=== PATIENT | male | born 1940 | race African-American/Black ===

== ENCOUNTER 2019-05-01 18:58 | Observation (INO) | payer OTHER ==
[2019-05-01 19:15] VITALS: BMI 25.7
[2019-05-01] MEDS ORDERED: SODIUM CHLORIDE 500 ML IV STA (19:15)
--- NOTE | 2019-05-01 19:15 | PDOC ---
Rapid Medical Evaluation Medical Evaluation: I have performed a brief in-person evaluation of this patient. The patient presents with a chief complaint of: had vomiting and diarrhea 4 days ago, which has now stopped; sent by PCP as noted with low BP today Pertinent physical exam findings: In NAD I have ordered the following: Labs, IVF The patient will proceed to the ED for further evaluation. 05/01/19 19:13
--- NOTE | 2019-05-01 21:36 | PDOC ---
History of Present Illness - General Chief Complaint: Lightheaded Stated Complaint: SENT BY PCP/VOMITING Time Seen by Provider: 05/01/19 19:13 History Source: Patient Exam Limitations: No Limitations - History of Present Illness Initial Comments: 05/02/19 06:26 78M PMH IDDM, ?CHF vs peripheral edema (on lasix) sent in by PCP for low BP reading. Pt had nbnb vomiting x5 and 1 episode of nonbloody loose stool on 04/27 and 04/28; has had decreased appetite and decreased PO intake since. Denies f/c, cp/sob, n/v. Had an episode of self resolved lightheadedness (~25s) when getting out of the car today; states he has felt "off" today; denies LOC. No sick contacts. Past History - Past Medical History Allergies/Adverse Reactions: Allergies Allergy/AdvReac Type Severity Reaction Status Date / Time No Known Allergies Allergy Verified 05/01/19 19:15 Home Medications: Ambulatory Orders Carvedilol 12.5 mg PO BID 05/02/19 Gabapentin 300 mg PO BID 05/02/19 Insulin Detemir [Levemir Flextouch] 36 unit SQ HS 05/02/19 Losartan Potassium 100 mg PO DAILY 05/02/19 Prednisolone 1% Ophthalmic [Pred Forte 1% -] 1 drop OD QID 05/02/19 Simvastatin 20 mg PO HS 05/02/19 Sitagliptin Phosphate [Januvia -] 50 mg PO DAILY 05/02/19 Timolol 0.5% [Timoptic 0.5%] 1 drop OD DAILY 05/02/19 Torsemide [Demadex -] 10 mg PO DAILY 05/02/19 COPD: No Diabetes: Yes - Psycho Social/Smoking Cessation Hx Smoking History: Never smoked Review of Systems - Review of Systems Able to Perform ROS?: Yes Comments:: 05/02/19 06:26 CONSTITUTIONAL: Denies F / C RESP: Denies SOB CARD: Denies chest pain, palpitations GI: endorses loss of appetite and decreased PO intake. Denies N / V / D, abdominal pain/cramping, bloody stool, inability to tolerate PO : Denies dysuria SKIN: Denies rashes. endorses chronic LE pitting edema - decreased today vs normal. NEURO: Denies numbness, tingling, weakness *Physical Exam - Vital Signs Last Vital Signs Temp Pulse Resp BP Pulse Ox 97.3 F L 71 18 100/49 L 95 05/01/19 19:11 05/01/19 19:11 05/01/19 19:11 05/01/19 19:11 05/01/19 19:11 - Physical Exam 05/02/19 06:26 VS: BP 110/49 GEN: Well appearing, NAD, comfortable. AAOx3. HEENT: NC/AT. No facial asymmetry. Dry mucous membranes. Normal voice. Supple neck w/ FROM. CV: S1/S2, RRR, no m/r/g LUNG: CTAB, no wheezes, crackles, rales, rhonchi. GI: Soft, ndnt, +BS, no guarding, no rebound. No masses. MSK: 1+ pitting LE edema. No obvious deformities of all extremities. SKIN: Warm, dry, no rashes appreciated. PSYCH: Normal mood and affect. NEURO: Moving all extremities well. ED Treatment Course - LABORATORY CBC & Chemistry Diagram: 05/01/19 21:40 05/01/19 21:40 - RADIOLOGY Radiology Studies Ordered: Category Date Time Status CXRPORT [CHEST X-RAY PORTABLE*] [RAD] Stat Radiology 05/01/19 21:31 Ordered Medical Decision Making - Medical Decision Making 05/01/19 21:32 78M PMH IDDM, ?CHF vs peripheral edema (on lasix) sent in by PCP for low BP reading. Pt feels off and had an episode of lightheadedness. DDX - likely dehydration; eval lytes, cardiac causes, presyncope? - CBC, CMP, Cardiac - EKG, CXR - Soft fluids 05/01/19 22:18 CXR reviewed EKG 2206 HR 64 NV 180 QRS 88 QTc 418; NSR on strip, left axis. 05/01/19 23:42 labs reviewed elevated BUN/Cr - pt states he has CKD III does not know baseline Cr Call placed to PCP 500 NS 05/02/19 00:09 d/w Dr. Dykes: Cr 2.February, baseline Cr 1.5-2.0, CKD III; BP 86/36 in office today. Admit for further workup //admitted Discharge - Discharge Information Problems reviewed: Yes Clinical Impression/Diagnosis: Syncope, near Acute renal failure superimposed on chronic kidney disease Qualifiers: Acute renal failure type: unspecified Chronic kidney disease stage: unspecified stage Qualified Code(s): N17.9 - Acute kidney failure, unspecified Condition: Stable - Admission Yes - Follow up/Referral - Patient Discharge Instructions - Post Discharge Activity
[2019-05-01 22:22] LABS: BASO % 0.9 % (0-2.0); EOS % 1.6 % (0-4.5); HEMATOCRIT 45.7 % (35.4-49); HEMOGLOBIN 15.5 GM/dL (11.7-16.9); LYMPH % 33.1 % (8-40); MCH 29.8 pg (25.7-33.7); MCHC 33.9 g/dl (32.0-35.9); MEAN CELL VOLUME 87.9 fl (80-96); MEAN PLT VOLUME 9.7 fl (7.5-11.1); MONO % 13.6 % (3.8-10.2); NEUT % 50.8 % (42.8-82.8); PLATELET COUNT 127 K/MM3 (134-434); RDW 13.7 % (11.9-15.9); WHITE BLOOD COUNT 6.5 K/mm3 (4.0-10.0)
[2019-05-01 22:52] LABS: ALBUMIN 3.6 g/dl (3.4-5.0); ALK PHOS 60 U/L (45-117); ANION GAP 8 MMOL/L (8-16); BILIRUBIN,TOTAL 0.6 mg/dL (0.2-1); BLOOD UREA NITROGEN 54.3 mg/dL (7-18); CALCIUM 8.7 mg/dL (8.5-10.1); CHLORIDE 101 mmol/L (98-107); CO2 26 mmol/L (21-32); CREATININE 3.4 mg/dL (0.55-1.3); GLUCOSE,RANDOM 140 mg/dL (74-106); MAGNESIUM 2.6 mg/dL (1.8-2.4); POTASSIUM 4.1 mmol/L (3.5-5.1); SGOT/AST 19 U/L (15-37); SGPT/ALT 19 U/L (13-61); SODIUM 135 mmol/L (136-145); TOT PROT 7.4 g/dl (6.4-8.2)
[2019-05-01] MEDS ORDERED: SODIUM CHLORIDE 0.9% 500 ML INFUS.BAG IV ONE (23:22)
--- NOTE | 2019-05-01 23:57 | PDOC ---
Attending Attestation - Resident Resident Name: Abimael Galindo - ED Attending Attestation I have performed the following: I have examined & evaluated the patient, The case was reviewed & discussed with the resident, I agree w/resident's findings & plan, Exceptions are as noted - HPI HPI: 05/01/19 23:51 78 yo male h/o here with episode of feeling lightheaded. pt states 4 days ago did have n/v/d which lasted 24 hours. no fever. no abd pain. no sick contact. all nonbloody . since then it has resolved, he is tolerating PO. but today he was about to walk across street and felt " wobbly" unsteady like he was going to faint. was nervous so waited at side of street. saw his pcp today found to have low bp 100 Sbp no fever chills. no cp no palpitations. no swellig.n no abd pain. no other complaints. denies vertigo or vertigo like sxs . - Physicial Exam PE: 05/01/19 23:53 awake alert lungs clear bilat heart rrr, mrg abd soft nt nd. ext wwp no edema. no calf tenderness. nuero normal cerbellar ( finger to nose, heel to ray normal gait normal. neg romberg, neg harvinder hallpike) strength 5/5 CN II - XII intact. - Medical Decision Making 05/01/19 23:54 78 yo male DM , and CKD here with recent n/v/d illness that has since resolved. now feeling lightheaded, near syncopal. no loc. normal cerebellar exam. plan r/o worsening ckd. electrolyte abnoramlity, cardiac causes or infetion given 1 L NS hydration. pt labs reveal ckd 3.0, otherwise unremarkable. TWI III, flat AVF. left axis. will try to contact pcp for baseline creatinine. Heart Score/ECG Review #1 General ECG Interpretation: Sinus Rhythm, Normal Rate, Normal Intervals, No acute ischemic changes Compared to previous ECG there are: Other (rate 64 TWI III, flat AVF. left axis)
[2019-05-02 00:22] LABS: URINE APPEARANCE CLEAR; URINE BILIRUBIN NEGATIVE (NEGATIVE); URINE COLOR YELLOW; URINE GLUCOSE (UA) NEGATIVE (NEGATIVE); URINE KETONE NEGATIVE (NEGATIVE); URINE LEUK ESTERASE NEGATIVE (NEGATIVE); URINE NITRITE NEGATIVE (NEGATIVE); URINE PROTEIN NEGATIVE (NEGATIVE)
--- NOTE | 2019-05-02 01:57 | PN ---
Teaching Attending Note Name of Resident: Sergey Pichardo ATTENDING PHYSICIAN STATEMENT I saw and evaluated the patient. I reviewed the resident's note and discussed the case with the resident. I agree with the resident's findings and plan as documented. SUBJECTIVE: 78-year-old male with a history of hypertension, diabetes mellitus, CKD, seen at PMDs office on 05/01/2019, was feeling dizzy at that time and wobbly. Found to be hypotensive in the PCPs office, was referred to emergency room for hypotension. Of note patient was having diarrhea. vomiting for past several days with about 2 loose bowel movements a day. Of note he was taking torsemide as well. Denied any headaches, nausea or vomiting.In the ER he received 1 L of IV fluid. Chest x-ray was performed. OBJECTIVE: Last Vital Signs Temp Pulse Resp BP Pulse Ox 97.3 F L 65 16 119/76 99 05/01/19 19:11 05/01/19 21:34 05/01/19 21:34 05/01/19 21:34 05/01/19 21:34 On physical exam patient was not in any acute distress, head was normocephalic, atraumatic. No JVD appreciated. Dry oral mucosa. Lungs are clear to auscultation bilaterally, cardiac exam was S1, S2. Abdomen soft, nontender. No CVA tenderness appreciated. No pedal edema appreciated. Dry skin. Abnormal Lab Results 05/01/19 05/01/19 21:40 21:40 Plt Count 127 L Monocytes % 13.6 H Sodium 135 L BUN 54.3 H Creatinine 3.4 H Random Glucose 140 H Magnesium 2.6 H Chest x-ray reviewed EKG reviewednormal sinus rhythm, LVH, left axis deviation ASSESSMENT AND PLAN: 78-year-old male with presyncope likely secondary to dehydration, MAYELA on CKD suspect likely prerenal azotemia as patient was thought to be dehydrated secondary to diarrhea, vomiting, and possibly overdiuresis. Dizziness improved after IV fluid hydration. Suspect vomiting and diarrhea likely secondary to gastroenteritis. 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
[2019-05-02] MEDS ORDERED: INSULIN (LEVEMIR) 100 UNITS/ML UNITS SQ ONE ×2 (02:36→04:16)
[2019-05-02] MEDS ORDERED: SODIUM CHLORIDE 1,000 ML IV SCH ×2 (02:45→10:26)
--- NOTE | 2019-05-02 02:57 | HP ---
CHIEF COMPLAINT: Hypotension PCP: Dr. Dykes HISTORY OF PRESENT ILLNESS: 78M PMH of HTN, IDDM, HLD, CKD III, who presents today from his PCP after an episode of hypotension. Patient endorses feeling weak and "off" the past few days after having multiple episodes of NBNB emesis on night and Wednesday , as well diarrhea on Wednesday. He has had decreased PO intake over the weekend and went to see his PCP in the morning, where they had a low BP reading. On his way to the PCP office he also had an episode of dizziness after he stepped out of the car but it resolved within a matter of seconds. He denies any other episodes similar to that during the past few days. He denies any chest pain, shortness of breath, current abdominal pain, nausea, vomiting, diarrhea, fever, chills, and cough. 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 Enjoys fishing, and lives with his ladyfriend at home. Allergies No Known Allergies Allergy (Verified 05/01/19 19:15) HOME MEDICATIONS: REVIEW OF SYSTEMS CONSTITUTIONAL: Absent: fever, chills, diaphoresis, generalized weakness, malaise, loss of appetite, weight change HEENT: Absent: rhinorrhea, nasal congestion, throat pain, throat swelling, difficulty swallowing, mouth swelling, ear pain, eye pain, visual changes CARDIOVASCULAR: Absent: chest pain, syncope, palpitations, irregular heart rate, lightheadedness , peripheral edema RESPIRATORY: Absent: cough, shortness of breath, dyspnea with exertion, orthopnea, wheezing, stridor, hemoptysis GASTROINTESTINAL: Absent: abdominal pain, abdominal distension, nausea, vomiting, diarrhea, constipation, melena, hematochezia GENITOURINARY: Absent: dysuria, frequency, urgency, hesitancy, hematuria, flank pain, genital pain MUSCULOSKELETAL: Absent: myalgia, arthralgia, joint swelling, back pain, neck pain SKIN: Absent: rash, itching, pallor HEMATOLOGIC/IMMUNOLOGIC: Absent: easy bleeding, easy bruising, lymphadenopathy, frequent infections ENDOCRINE: Absent: unexplained weight gain, unexplained weight loss, heat intolerance, cold intolerance NEUROLOGIC: Absent: headache, focal weakness or paresthesias, dizziness, unsteady gait, seizure, mental status changes, bladder or bowel incontinence PSYCHIATRIC: Absent: anxiety, depression, suicidal or homicidal ideation, hallucinations. PHYSICAL EXAMINATION Vital Signs - 24 hr 05/01/19 05/01/19 19:11 21:34 Temperature 97.3 F L Pulse Rate 71 Pulse Rate [ 65 Right Brachial] Respiratory 18 16 Rate Blood Pressure 100/49 L Blood Pressure 119/76 [Right Arm] O2 Sat by Pulse 95 99 Oximetry (%) GENERAL: Awake, alert, and fully oriented, in no acute distress. HEAD: Normal with no signs of trauma. EARS, NOSE, THROAT: Moist mucous membranes. NECK: Normal range of motion, supple without lymphadenopathy, JVD, or masses. LUNGS: Breath sounds equal, clear to auscultation bilaterally. No wheezes, and no crackles. HEART: Regular rate and rhythm, normal S1 and S2 without murmur, rub or gallop. ABDOMEN: Soft, nontender, not distended, normoactive bowel sounds, no guarding or rebound. MUSCULOSKELETAL: Normal range of motion at all joints. No bony deformities or tenderness. No CVA tenderness. UPPER EXTREMITIES: 2+ pulses, warm, well-perfused. LOWER EXTREMITIES: 2+ pulses, warm, well-perfused. No calf tenderness. NEUROLOGICAL: Cranial nerves II-XII intact. Normal speech. Normal gait. PSYCHIATRIC: Cooperative. Good eye contact. Appropriate mood and affect. SKIN: Warm, dry, normal turgor, no rashes or lesions noted, normal capillary refill Laboratory Results - last 24 hr 05/01/19 05/01/19 05/01/19 21:40 21:40 23:58 WBC 6.5 RBC 5.20 Hgb 15.5 Hct 45.7 MCV 87.9 MCH 29.8 MCHC 33.9 RDW 13.7 Plt Count 127 L MPV 9.7 Absolute Neuts (auto) 3.3 Neutrophils % 50.8 Lymphocytes % 33.1 Monocytes % 13.6 H Eosinophils % 1.6 Basophils % 0.9 Nucleated RBC % 0 Sodium 135 L Potassium 4.1 Chloride 101 Carbon Dioxide 26 Anion Gap 8 BUN 54.3 H Creatinine 3.4 H Est GFR (CKD-EPI)AfAm 18.68 Est GFR (CKD-EPI)NonAf 16.12 Random Glucose 140 H Calcium 8.7 Magnesium 2.6 H Total Bilirubin 0.6 AST 19 ALT 19 Alkaline Phosphatase 60 Creatine Kinase 132 Troponin I < 0.02 Total Protein 7.4 Albumin 3.6 Urine Color Yellow Urine Appearance Clear Urine pH 5.0 Ur Specific [place] 1.015 Urine Protein Negative Urine Glucose (UA) Negative Urine Ketones Negative Urine Blood Negative Urine Nitrite Negative Urine Bilirubin Negative Urine Urobilinogen 1.0 Ur Leukocyte Esterase Negative ASSESSMENT/PLAN: 78M PMH of HTN, IDDM, HLD, CKD III, who presents today from his PCP after an episode of hypotension and likely prerenal acute kidney injury in the setting of chronic kidney disease due to dehydration. 1) Hypotension -Had episode of presyncope but symptoms have resolved -Currently normotensive,has hx of hypertension -Orthostatics: 149/71 HR 65 while supine. 160/61 HR 74 while standing -1L of NS given -Continue NS @ 50 ml/hr -Encourage PO intake. -Echocardiogram to evaluate cardiac function in light of episode of lightheadedness/dizziness -Continue Losartan 100 mg -Continue Carvedilol 12.5 mg BID 2)MAYELA in setting of CKD III -Baseline creatinine is ~2.0 -Today creatinine is 3.4. Likely prerenal due to dehydration -1L NS given -Holding Torsemide -NS @ 50 ml/hr -Urine lytes ordered -Renal U/S ordered 3) Hx of DM -Usually takes Levemir 36 units HS. However due to poor oral intake, will decrease tonights dose - Holding home oral hypoglycemics - Continue eye drops for cataracts. - ISS and BGM ACHS -Continue gabapentin 300 mg BID 4)Hx of HLD -Continue simvastatin 20 mgHS DVT: Heparin SQ F: NS @ 50 ml/hr E: Monitor BMP N: Sodium/fat/diabetic controlled diet Dispo: Telemetry/obs Visit type - Emergency Visit Emergency Visit: Yes ED Registration Date: 05/02/19 Care time: The patient presented to the Emergency Department on the above date and was hospitalized for further evaluation of their emergent condition. - New Patient This patient is new to me today: Yes Date on this admission: 05/02/19 - Critical Care Critical Care patient: No ATTENDING PHYSICIAN STATEMENT I saw and evaluated the patient. I reviewed the resident's note and discussed the case with the resident. I agree with the resident's findings and plan as documented. SUBJECTIVE: OBJECTIVE: ASSESSMENT AND PLAN:
[2019-05-02] MEDS ORDERED: HEPARIN NA (PORCINE) 5,000 UNITS/ML 1ML VIAL SQ SCH (06:00)
[2019-05-02 06:44] LABS: BASO % 0.8 % (0-2.0); EOS % 2.2 % (0-4.5); HEMATOCRIT 37.5 % (35.4-49); HEMOGLOBIN 12.5 GM/dL (11.7-16.9); LYMPH % 35.3 % (8-40); MCH 29.3 pg (25.7-33.7); MCHC 33.4 g/dl (32.0-35.9); MEAN CELL VOLUME 87.7 fl (80-96); MEAN PLT VOLUME 8.9 fl (7.5-11.1); MONO % 14.2 % (3.8-10.2); NEUT % 47.5 % (42.8-82.8); PLATELET COUNT 102 K/MM3 (134-434); RBC 4.28 M/mm3 (4.00-5.60); RDW 13.4 % (11.9-15.9); WHITE BLOOD COUNT 5.6 K/mm3 (4.0-10.0)
[2019-05-02] MEDS ORDERED: INSULIN (NOVOLOG) ASPART 100 UNITS/ML 10ML VIAL ONE (07:02)
[2019-05-02 07:07] LABS: CREATININE 3.2 mg/dL (0.55-1.3); POTASSIUM 3.8 mmol/L (3.5-5.1)
[2019-05-02] MEDS: INSULIN (NOVOLOG) ASPART 100 UNITS/ML 10ML VIAL SQ SCH ×4 (07:13→21:33)
--- NOTE | 2019-05-02 08:52 | CONSULT ---
Consult Consult Specialty:: Nephrology Reason for Consultation:: CKD - History of Present Illness Chief Complaint: low blood pressure History of Present Illness: Pt is an 78 year old male with pmhx of ckd, htn. dm, hld who presents to the ER after having an episode of hypotension. He says that he has felt sick and has had several episodes of vomiting and diarrhea. 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 He does have history of CKD and follows with a windows server support technician. 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 He does take furosemide at home. - History Source History Provided By: Patient - Past Medical History Cardio/Vascular: Yes: HTN, Hyperlipdemia Renal/: Yes: Renal Inusuff - Smoking History Smoking history: Never smoked Home Medications - Allergies Allergies/Adverse Reactions: Allergies Allergy/AdvReac Type Severity Reaction Status Date / Time No Known Allergies Allergy Verified 05/01/19 19:15 - Home Medications Home Medications: Ambulatory Orders Carvedilol 12.5 mg PO BID 05/02/19 Gabapentin 300 mg PO BID 05/02/19 Insulin Detemir [Levemir Flextouch] 36 unit SQ HS 05/02/19 Losartan Potassium 100 mg PO DAILY 05/02/19 Prednisolone 1% Ophthalmic [Pred Forte 1% -] 1 drop OD QID 05/02/19 Simvastatin 20 mg PO HS 05/02/19 Sitagliptin Phosphate [Januvia -] 50 mg PO DAILY 05/02/19 Timolol 0.5% [Timoptic 0.5%] 1 drop OD DAILY 05/02/19 Torsemide [Demadex -] 10 mg PO DAILY 05/02/19 Family Medical History Family History: Denies Review of Systems - Review of Systems Constitutional: reports: Malaise Eyes: reports: No Symptoms HENT: reports: No Symptoms Neck: reports: No Symptoms Cardiovascular: reports: Edema Respiratory: reports: No Symptoms Gastrointestinal: reports: No Symptoms Genitourinary: reports: No Symptoms Musculoskeletal: reports: No Symptoms Integumentary: reports: No Symptoms Endocrine: reports: No Symptoms Hematology/Lymphatic: reports: No Symptoms Psychiatric: reports: No Symptoms Physical Exam Vital Signs: Vital Signs Temperature 97.3 F L 05/01/19 19:11 Pulse Rate 65 05/02/19 07:46 Respiratory Rate 20 02/25/20 07:46 Blood Pressure 126/65 02/25/20 07:46 O2 Sat by Pulse Oximetry (%) 100 05/02/19 07:46 Constitutional: Yes: Calm Eyes: Yes: Conjunctiva Clear HENT: Yes: Atraumatic Cardiovascular: Yes: S1, S2 Respiratory: Yes: CTA Bilaterally Gastrointestinal: Yes: WNL Renal/: Yes: WNL Musculoskeletal: Yes: WNL Edema: Yes Edema: LLE: 1+, RLE: 1+ Neurological: Yes: Oriented Psychiatric: Yes: Oriented Labs: CBC, BMP 05/02/19 06:10 05/02/19 06:10 Imaging - Results Chest X-ray: Report Reviewed Ultrasound: Report Reviewed Problem List - Problems (1) Acute renal failure superimposed on chronic kidney disease Code(s): N17.9 - ACUTE KIDNEY FAILURE, UNSPECIFIED; N18.9 - CHRONIC KIDNEY DISEASE, UNSPECIFIED Qualifiers: Acute renal failure type: unspecified Chronic kidney disease stage: unspecified stage Qualified Code(s): N17.9 - Acute kidney failure, unspecified ; N18.9 - Chronic kidney disease, unspecified (2) Syncope, near Code(s): R55 - SYNCOPE AND COLLAPSE Assessment/Plan Current Medications Generic Name Dose Route Start Last Admin Trade Name Freq PRN Reason Stop Dose Admin Atorvastatin Calcium 10 mg 05/02/19 22:00 Lipitor - PO HS PAM Carvedilol 12.5 mg 05/02/19 10:00 Coreg - PO BID PAM Sodium Chloride 1,000 mls @ 50 mls/hr 05/02/19 02:45 05/02/19 04:35 Normal Saline - IV 05/03/19 02:38 50 mls/hr ASDIR PAM Administration Insulin Aspart 1 units 05/02/19 07:00 05/02/19 07:13 Novolog Vial SQ 4 units ACHS PAM Administration Protocol Insulin Detemir 30 units 05/02/19 22:00 Levemir Vial SQ HS PAM Losartan Potassium 100 mg 05/02/19 10:00 Cozaar - PO DAILY PAM Prednisolone Acetate 1 drop 05/02/19 10:00 Pred Forte 1% - OD QID PAM Timolol Maleate 1 drop 05/02/19 10:00 Timoptic 0.5% OD BID PAM Impression 1. ckd 2. humphrey 3. near syncope 4. dm 5. htn Plan - hold bp meds - hold losartan for now - renal function improving - repeat labs in am - will need follow up ultrasound as outpt for the left kidney deformity
--- NOTE | 2019-05-02 09:40 | EKG ---
Test Reason : Blood Pressure : / mmHG Vent. Rate : 064 BPM Atrial Rate : 064 BPM P-R Int : 180 ms QRS Dur : 088 ms QT Int : 406 ms P-R-T Axes : 017 -37 -08 degrees QTc Int : 418 ms NORMAL SINUS RHYTHM LEFT AXIS DEVIATION MINIMAL VOLTAGE CRITERIA FOR LVH, MAY BE NORMAL VARIANT ABNORMAL ECG NO PREVIOUS ECGS AVAILABLE Confirmed by Neel Trevino MD ([id number]) on 05/02/2019 9:40:07 AM Referred By: Confirmed By:Neel Trevino MD
[2019-05-02] MEDS ORDERED: LOSARTAN POTASSIUM 50 MG TABLET (FP) PO SCH (10:00)
[2019-05-02] MEDS ORDERED: GABAPENTIN 300 MG CAPSULE PO SCH (10:00)
[2019-05-02] MEDS ORDERED: PATIENT'S OWN MEDICATION (NON-FORMULARY) (Losartan Potassium [Losartan Potassium] 100 MG) PO SCH (10:00)
[2019-05-02] MEDS ORDERED: CARVEDILOL 12.5 MG TABLET (FP) PO SCH ×2 (10:00→14:44)
--- NOTE | 2019-05-02 10:54 | ECHO ---
Name: TAYA ROSA Exam:Adult Echocardiogram Study Date: 05/02/2019 10:04 AM Age: 78 yrs Reason For Study: Presyncopal Height: 72 in Weight: 190 lb BSA: 2.1 m2 MMode/2D Measurements & Calculations IVSd: 1.4 cm Ao root diam: 3.9 cm LVIDd: 3.0 cm LA dimension: 3.7 cm LVIDs: 2.1 cm ACS: 2.2 cm LVPWd: 1.0 cm EDV(Teich): 36.2 ml LVOT diam: 2.0 cm ESV(Teich): 13.8 ml RV S Silvino: 8.0 cm/sec Doppler Measurements & Calculations MV E max silvino: 94.3 cm/sec Ao V2 max: 125.7 cm/sec MV A max silvino: 80.5 cm/sec Ao max P.3 mmHg MV E/A: 1.2 Ao V2 mean: 82.8 cm/sec MV dec time: 0.18 sec Ao mean P.2 mmHg Ao V2 VTI: 26.5 cm ISAAC(I,D): 2.8 cm2 AI P1/2t: 1180 msec ISAAC(V,D): 2.7 cm2 AI max silvino: 282.3 cm/sec LV V1 max P.4 mmHg AI max P.9 mmHg LV V1 mean P.1 mmHg AI dec slope: 70.1 cm/sec2 LV V1 max: 104.6 cm/sec LV V1 mean: 67.7 cm/sec LV V1 VTI: 23.1 cm MR max silvino: 176.5 cm/sec SV(LVOT): 75.3 ml MR max P.6 mmHg TR max silvino: 169.9 cm/sec PA V2 max: 73.1 cm/sec TR max P.8 mmHg PA max P.1 mmHg PI end-d silvino: 96.0 cm/sec Med Peak E' Silvino: 6.9 cm/sec Med E/e': 13.6 Lat Peak E' Silvino: 9.2 cm/sec Lat E/e': 10.3 Procedure A complete two-dimensional transthoracic echocardiogram was performed (2D, M-mode, Doppler and color flow Doppler). Left Ventricle The left ventricular size, thickness and function are normal. Ejection Fraction = 65%. E/A reversal c onsistent with but not diagnostic of poor LV compliance. The left ventricular wall motion is normal. Right Ventricle The right ventricle is normal in size and function. Atria Normal left and right atrial size and function. Mitral Valve There is mild mitral annular calcification. There is mild mitral valve thickening. There is trace chris ral regurgitation. Tricuspid Valve The tricuspid valve is normal in structure and function. There is trace tricuspid regurgitation. Righ t ventricular systolic pressure is 18 mmhg. Aortic Valve There is mild aortic valve thickening. Trace to mild aortic regurgitation. Pulmonic Valve The pulmonic valve is normal in structure and function. Great Vessels Borderline aortic root dilatation. Pericardium/Pleura There is no pericardial effusion. There is no pleural effusion. Interpretation Summary The left ventricular size, thickness and function are normal Ejection Fraction = 65%. There is mild mitral annular calcification. There is mild mitral valve thickening. There is trace mitral regurgitation. There is trace tricuspid regurgitation. There is mild aortic valve thickening. Trace to mild aortic regurgitation. MD Neel Trevino 05/02/2019 10:53 AM
--- NOTE | 2019-05-02 14:35 | PN ---
Teaching Attending Note Name of Resident: Abimael Schroeder ATTENDING PHYSICIAN STATEMENT I saw and evaluated the patient. I reviewed the resident's note and discussed the case with the resident. I agree with the resident's findings and plan as documented. SUBJECTIVE: No fever or chills. No CP or SOB. No NV. No abd pain, no diarrhea. He reports that his Cr is in the 2 range. he had N/V/D on and Wednesday then it stopped. was light headed yesterday but not today . OBJECTIVE: limited exam. patient is in hallway NAD , awake, pleasant, and cooperative CV: RRR, no MRG Lungs: CTAB Ext : No edema or erythema ASSESSMENT AND PLAN: 78 y/o man with h/o CKDIII, HTN, DM, who presented with hypotension from his PCP 's office. He was found to have MAYELA on CKD 1- MAYELA on CKD: base line Cr in 2 range . will confirm with PCP MAYELA is likely due to prerenal azotemia from volume depletion in setting of N/V/ D and diuretic use Cr improved with IV hydration - COnt and increase IVF to 100 - follow urine electrolytes - renal consult pending Recs - Renal US with abnormal contour of the kidney but no abn. renal US in few month - DC mili for now. unfortunately, he received the AM dose 2- Hypotension: likely due to volume depletion - resolved. - hold diuretics - hold losartan due to MAYELA and hypotension - cont coreg with holding parameters 3- DM: - cont Levemir and SSI - hold sitagliptin with decreased GFR 4- Dis[o : HLOC
[2019-05-02] MEDS: TIMOLOL 0.5% OPHTHALMIC SOL 5 ML BOTTLE OD SCH ×2 (14:49→21:34)
[2019-05-02] MEDS: prednisoLONE ACETATE 1% OPHTH SUSP 5 ML BOTTLE OD SCH ×4 (14:49→21:34)
--- NOTE | 2019-05-02 18:36 | PN ---
Physical Exam: SUBJECTIVE: Patient seen and examined at bedside. pt has no acute complaints. denies SOB or CP OBJECTIVE: Vital Signs Period Temp Pulse Resp BP Sys/Junior Pulse Ox Last 24 Hr 97.3 F-98.5 F 57-71 16-20 100-138/49-76 95-100 GENERAL: The patient is awake, alert, and fully oriented, in no acute distress. ENT: moist mucous membranes. NECK: Trachea midline, full range of motion, supple. LUNGS: Breath sounds equal, clear to auscultation bilaterally, no wheezes, no crackles, no accessory muscle use. HEART: Regular rate and rhythm, +S1, S2 ABDOMEN: Soft, nontender, nondistended, normoactive bowel sounds, no guarding EXTREMITIES: 2+ pulses, warm, well-perfused, no edema. SKIN: Warm, dry, normal turgor, no rashes or lesions noted Laboratory Last Values WBC 5.6 K/mm3 (4.0-10.0) 05/02/19 06:10 RBC 4.28 M/mm3 (4.00-5.60) 05/02/19 06:10 Hgb 12.5 GM/dL (11.7-16.9) 05/02/19 06:10 Hct 37.5 % (35.4-49) D 05/02/19 06:10 MCV 87.7 fl (80-96) 05/02/19 06:10 MCH 29.3 pg (25.7-33.7) 05/02/19 06:10 MCHC 33.4 g/dl (32.0-35.9) 05/02/19 06:10 RDW 13.4 % (11.9-15.9) 05/02/19 06:10 Plt Count 102 K/MM3 (134-434) L 05/02/19 06:10 MPV 8.9 fl (7.5-11.1) 05/02/19 06:10 Absolute Neuts (auto) 2.7 K/mm3 (1.5-8.0) 05/02/19 06:10 Neutrophils % 47.5 % (42.8-82.8) 05/02/19 06:10 Lymphocytes % 35.3 % (8-40) 05/02/19 06:10 Monocytes % 14.2 % (3.8-10.2) H 02/25/20 06:10 Eosinophils % 2.2 % (0-4.5) 05/02/19 06:10 Basophils % 0.8 % (0-2.0) 05/02/19 06:10 Nucleated RBC % 0 % (0-0) 05/02/19 06:10 Sodium 137 mmol/L (136-145) 05/02/19 06:10 Potassium 3.8 mmol/L (3.5-5.1) 05/02/19 06:10 Chloride 105 mmol/L (98-107) 05/02/19 06:10 Carbon Dioxide 26 mmol/L (21-32) 05/02/19 06:10 Anion Gap 6 MMOL/L (8-16) L 05/02/19 06:10 BUN 55.0 mg/dL (7-18) H 05/02/19 06:10 Creatinine 3.2 mg/dL (0.55-1.3) H 05/02/19 06:10 Est GFR (CKD-EPI)AfAm 20.10 05/02/19 06:10 Est GFR (CKD-EPI)NonAf 17.34 05/02/19 06:10 POC Glucometer 101 UNITS (80-120) 05/02/19 13:09 Random Glucose 258 mg/dL (74-106) H 05/02/19 06:10 Calcium 8.0 mg/dL (8.5-10.1) L 05/02/19 06:10 Magnesium 2.6 mg/dL (1.8-2.4) H 05/01/19 21:40 Total Bilirubin 0.6 mg/dL (0.2-1) 05/01/19 21:40 AST 19 U/L (15-37) 05/01/19 21:40 ALT 19 U/L (13-61) 05/01/19 21:40 Alkaline Phosphatase 60 U/L (45-117) 05/01/19 21:40 Creatine Kinase 132 U/L (26-308) 05/01/19 21:40 Troponin I < 0.02 ng/ml (0.00-0.05) 05/01/19 21:40 Total Protein 7.4 g/dl (6.4-8.2) 05/01/19 21:40 Albumin 3.6 g/dl (3.4-5.0) 05/01/19 21:40 Urine Color Yellow 05/01/19 23:58 Urine Appearance Clear 05/01/19 23:58 Urine pH 5.0 (5.0-8.0) 05/01/19 23:58 Ur Specific [place] 1.015 (1.010-1.035) 05/01/19 23:58 Urine Protein Negative (NEGATIVE) 05/01/19 23:58 Urine Glucose (UA) Negative (NEGATIVE) 05/01/19 23:58 Urine Ketones Negative (NEGATIVE) 05/01/19 23:58 Urine Blood Negative (NEGATIVE) 05/01/19 23:58 Urine Nitrite Negative (NEGATIVE) 05/01/19 23:58 Urine Bilirubin Negative (NEGATIVE) 05/01/19 23:58 Urine Urobilinogen 1.0 mg/dL (0.2-1.0) 05/01/19 23:58 Ur Leukocyte Esterase Negative (NEGATIVE) 05/01/19 23:58 Current Medications Atorvastatin Calcium (Lipitor -) 10 mg PO HS [facility] Carvedilol (Coreg -) 12.5 mg PO BID [facility] Sodium Chloride (Normal Saline -) 1,000 mls @ 100 mls/hr IV ASDIR [facility] Stop: 05/03/19 02:38 Last Admin: 05/02/19 14:58 Dose: 100 mls/hr Insulin Aspart (Novolog Vial) 1 units SQ ACHS [facility]; Protocol Last Admin: 05/02/19 16:53 Dose: Not Given Insulin Detemir (Levemir Vial) 30 units SQ HS [facility] Prednisolone Acetate (Pred Forte 1% -) 1 drop OD QID [facility] Last Admin: 05/02/19 15:41 Dose: Not Given Timolol Maleate (Timoptic 0.5%) 1 drop OD BID [facility] Last Admin: 05/02/19 14:49 Dose: Not Given ASSESSMENT/PLAN: 78 yo M PMH HTN, DM, HLD, CKD, presented from his PCP for a low BP reading. Pt is admitted for MAYELA on CKD. Hypotension - orthostatic negative. - c/w IVF @ 100 mls/hr - Encourage PO intake - Echo shows EF 65%, mild mitral annular calcification, mild mitral valve thickening, trace MR, trace TR , mild aortic valve thickening, mild AR - hold losartan - c/w coreg MAYELA on CKD likely 2/2 dehydration - baseline Cr approx 2 , confirmed with PCP Dr. Linares - improving - continue w/ IVF - hold SOWMYA-I / ARB, avoid nephrotoxic agent -Renal U/S shows focal contour of L kidney. will need outpt f/u in 3 months - pending U lytes - Nephro recs appreciated DM - c/w Levemir 30 hs - ISS, BGM - c/w gabapentin and eye drops HLD - c/w simvastatin DVT ppx: Hep SQ Dispo: Telemetry Visit type - Emergency Visit Emergency Visit: No - New Patient This patient is new to me today: Yes - Critical Care Critical Care patient: No - Discharge Referral Referred to [facility] Med P.C.: No ATTENDING PHYSICIAN STATEMENT I saw and evaluated the patient. I reviewed the resident's note and discussed the case with the resident. I agree with the resident's findings and plan as documented. SUBJECTIVE: OBJECTIVE: ASSESSMENT AND PLAN:
[2019-05-02] MEDS ORDERED: PT OWN MED DRAWER 7, Y5N ONE ×2 (18:40→21:27)
[2019-05-02] MEDS: ATORVASTATIN CA 10 MG TABLET (FP) PO SCH (21:33)
[2019-05-02] MEDS ORDERED: INSULIN (LEVEMIR) 100 UNITS/ML UNITS SQ SCH (22:00)
[2019-05-02] MEDS ORDERED: PATIENT'S OWN MEDICATION (NON-FORMULARY) (Simvastatin [Simvastatin] 20 MG) PO SCH (22:00)
[2019-05-02] MEDS: GABAPENTIN 300 MG CAPSULE PO SCH (22:17)
[2019-05-03] MEDS: INSULIN (NOVOLOG) ASPART 100 UNITS/ML 10ML VIAL SQ SCH ×2 (06:35→11:58)
[2019-05-03 06:43] LABS: HEMOGLOBIN 13.5 GM/dL (11.7-16.9); MCH 29.2 pg (25.7-33.7); MCHC 33.6 g/dl (32.0-35.9); MEAN CELL VOLUME 86.8 fl (80-96); MEAN PLT VOLUME 8.9 fl (7.5-11.1); PLATELET COUNT 116 K/MM3 (134-434); RBC 4.61 M/mm3 (4.00-5.60); RDW 13.3 % (11.9-15.9); WHITE BLOOD COUNT 6.4 K/mm3 (4.0-10.0)
[2019-05-03 07:08] LABS: BLOOD UREA NITROGEN 40.1 mg/dL (7-18); CALCIUM 7.8 mg/dL (8.5-10.1); CREATININE 2.2 mg/dL (0.55-1.3); MAGNESIUM 2.4 mg/dL (1.8-2.4); PHOSPHOROUS 3.1 mg/dL (2.5-4.9); POTASSIUM 3.7 mmol/L (3.5-5.1)
--- NOTE | 2019-05-03 08:53 | PN ---
Teaching Attending Note Name of Resident: Keira Carey ATTENDING PHYSICIAN STATEMENT I saw and evaluated the patient. I reviewed the resident's note and discussed the case with the resident. I agree with the resident's findings and plan as documented. SUBJECTIVE: Patient is feeling well, but overnight events noted, as per patient , he became diaphoretic and bradycardic overnight. Vital Signs Temperature 97.6 F 05/03/19 06:00 Pulse Rate 88 05/03/19 06:00 Respiratory Rate 18 05/03/19 06:00 Blood Pressure 130/57 L 05/03/19 06:00 O2 Sat by Pulse Oximetry (%) 99 05/02/19 23:00 GENERAL: The patient is awake, alert, and fully oriented, in no acute distress. HEAD: Normal with no signs of trauma. EYES: PERRL, extraocular movements intact, sclera anicteric, conjunctiva clear. ENT: Ears normal, oropharynx clear without exudates, moist mucous membranes. NECK: Trachea midline, full range of motion, supple. LUNGS: Breath sounds equal, clear to auscultation bilaterally, no wheezes, no crackles, no accessory muscle use. HEART: Regular rate and rhythm, S1, S2 +, LEIGHA 2/6 , no rub or gallop. ABDOMEN: Soft, nontender, nondistended, normoactive bowel sounds, no guarding, no rebound, no hepatosplenomegaly, no masses. EXTREMITIES: 2+ pulses, warm, well-perfused, no edema. NEUROLOGICAL: Cranial nerves II through XII grossly intact. Normal speech, gait not observed. PSYCH: Normal mood, normal affect. SKIN: Warm, dry, normal turgor, no rashes or lesions noted CBCD WBC 6.4 K/mm3 (4.0-10.0) 05/03/19 06:00 RBC 4.61 M/mm3 (4.00-5.60) 05/03/19 06:00 Hgb 13.5 GM/dL (11.7-16.9) 05/03/19 06:00 Hct 40.0 % (35.4-49) 05/03/19 06:00 MCV 86.8 fl (80-96) 05/03/19 06:00 MCHC 33.6 g/dl (32.0-35.9) 05/03/19 06:00 RDW 13.3 % (11.9-15.9) 05/03/19 06:00 Plt Count 116 K/MM3 (134-434) L 05/03/19 06:00 MPV 8.9 fl (7.5-11.1) 05/03/19 06:00 CMP Sodium 143 mmol/L (136-145) 05/03/19 06:00 Potassium 3.7 mmol/L (3.5-5.1) 05/03/19 06:00 Chloride 113 mmol/L (98-107) H 05/03/19 06:00 Carbon Dioxide 25 mmol/L (21-32) 05/03/19 06:00 Anion Gap 4 MMOL/L (8-16) L 05/03/19 06:00 BUN 40.1 mg/dL (7-18) H 05/03/19 06:00 Creatinine 2.2 mg/dL (0.55-1.3) H 05/03/19 06:00 Random Glucose 52 mg/dL (74-106) L 05/03/19 06:00 Calcium 7.8 mg/dL (8.5-10.1) L 05/03/19 06:00 Total Bilirubin 0.6 mg/dL (0.2-1) 05/01/19 21:40 AST 19 U/L (15-37) 05/01/19 21:40 ALT 19 U/L (13-61) 05/01/19 21:40 Alkaline Phosphatase 60 U/L (45-117) 05/01/19 21:40 Total Protein 7.4 g/dl (6.4-8.2) 05/01/19 21:40 Albumin 3.6 g/dl (3.4-5.0) 05/01/19 21:40 CARDIAC ENZYMES Creatine Kinase 132 U/L (26-308) 05/01/19 21:40 Troponin I < 0.02 ng/ml (0.00-0.05) 05/01/19 21:40 Current Medications Generic Name Dose Route Start Last Admin Trade Name Freq PRN Reason Stop Dose Admin Atorvastatin Calcium 10 mg 05/02/19 22:00 05/02/19 21:33 Lipitor - PO 10 mg HS PAM Administration Carvedilol 12.5 mg 05/02/19 14:44 05/02/19 21:33 Coreg - PO 12.5 mg BID PAM Administration Gabapentin 300 mg 05/02/19 22:00 05/02/19 22:17 Neurontin - PO 300 mg BID PAM Administration Insulin Aspart 1 units 05/02/19 07:00 05/03/19 06:35 Novolog Vial SQ Not Given ACHS [facility] Protocol Insulin Detemir 25 units 05/03/19 22:00 Levemir Vial SQ HS [facility] Prednisolone Acetate 1 drop 05/02/19 10:00 05/02/19 21:34 Pred Forte 1% - OD Not Given QID [facility] Timolol Maleate 1 drop 05/02/19 10:00 05/02/19 21:34 Timoptic 0.5% OD 1 drop BID PAM Administration Home Medications Medication Instructions Recorded Carvedilol 12.5 mg PO BID 05/02/19 Gabapentin 300 mg PO BID 05/02/19 Insulin Detemir [Levemir Flextouch] 36 unit SQ HS 05/02/19 Losartan Potassium 100 mg PO DAILY 05/02/19 Prednisolone 1% Ophthalmic [Pred 1 drop OD QID 05/02/19 Forte 1% -] Simvastatin 20 mg PO HS 05/02/19 Sitagliptin Phosphate [Januvia -] 50 mg PO DAILY 05/02/19 Timolol 0.5% [Timoptic 0.5%] 1 drop OD DAILY 05/02/19 Torsemide [Demadex -] 10 mg PO DAILY 05/02/19 tele: sinus, sinus mary with blocked PACs during overnight hours ASSESSMENT AND PLAN: Patient is a 78yom with PMhx CKD with baseline of 2.2, HTN, DM, who presented with hypotension from his PCP's office. He was found to have MAYELA on CKD. As per patient , he experienced diaphoresis and when he checked his blood sugar was in 50's, and was found to be hypotensive as well. # Acute sinus bradycardia: will hold Coreg for now. will reevaluate the patient in am. # MAYELA on CKD: base line Cr in 2 range. patient is back to his baseline. Losartan is on hold. # Hypotension: presented with Bradycardia , likely due to volume depletion, losartan was held. # T2DM: will cut the dose of levemir into 1/2, will sliding scale and will give it in am. # As per cardio: sinus mary,with PACs suggestive of sleep apnea - pt endorses snoring, recommend outpatient sleep study echo pending # HTN is normotensive ,will restart Losartan 25mg at this time, and continue to monitor. #HLD: continue statin DVt px: SCds
[2019-05-03] MEDS ORDERED: PT OWN MED DRAWER 7, Y5N ONE (08:54)
--- NOTE | 2019-05-03 09:09 | PN ---
Physical Exam: SUBJECTIVE: Patient seen and examined at bedside. pt states that this am he felt very sweaty but also had chills. he denies n/v. denies cp or sob. denies dysuria OBJECTIVE: Vital Signs Period Temp Pulse Resp BP Sys/Junior Pulse Ox Last 24 Hr 97.6 F-98.5 F 57-88 18-20 108-152/54-72 99-100 GENERAL: The patient is awake, alert, and fully oriented, in no acute distress. HEAD: Normal with no signs of trauma. LUNGS: Breath sounds equal, clear to auscultation bilaterally, no wheezes, no crackles, no accessory muscle use. HEART: Regular rate and rhythm, S1, S2 without murmur, rub or gallop. ABDOMEN: Soft, nontender, nondistended, normoactive bowel sounds, no guarding EXTREMITIES: 2+ pulses, warm, well-perfused, no edema. SKIN: Warm, dry, normal turgor, no rashes or lesions noted Laboratory Results - last 24 hr 05/02/19 05/02/19 05/02/19 13:09 21:31 22:00 WBC RBC Hgb Hct MCV MCH MCHC RDW Plt Count MPV Sodium Potassium Chloride Carbon Dioxide Anion Gap BUN Creatinine Est GFR (CKD-EPI)AfAm Est GFR (CKD-EPI)NonAf POC Glucometer 101 108 Random Glucose Calcium Phosphorus Magnesium Ur Random Sodium 52 Ur Random Potassium 13.0 L Ur Random Chloride 26 L 05/03/19 05/03/19 05/03/19 05:48 06:00 06:00 WBC 6.4 RBC 4.61 Hgb 13.5 Hct 40.0 MCV 86.8 MCH 29.2 MCHC 33.6 RDW 13.3 Plt Count 116 L MPV 8.9 Sodium 143 Potassium 3.7 Chloride 113 H Carbon Dioxide 25 Anion Gap 4 L BUN 40.1 H Creatinine 2.2 H Est GFR (CKD-EPI)AfAm 31.62 Est GFR (CKD-EPI)NonAf 27.28 POC Glucometer 52 Random Glucose 52 L Calcium 7.8 L Phosphorus 3.1 Magnesium 2.4 Ur Random Sodium Ur Random Potassium Ur Random Chloride Current Medications Atorvastatin Calcium (Lipitor -) 10 mg PO HS [facility] Last Admin: 05/02/19 21:33 Dose: 10 mg Carvedilol (Coreg -) 12.5 mg PO BID [facility] Last Admin: 05/02/19 21:33 Dose: 12.5 mg Gabapentin (Neurontin -) 300 mg PO BID [facility] Last Admin: 05/02/19 22:17 Dose: 300 mg Insulin Aspart (Novolog Vial) 1 units SQ ACHS [facility]; Protocol Last Admin: 05/03/19 06:35 Dose: Not Given Insulin Detemir (Levemir Vial) 18 units SQ AM [facility] Prednisolone Acetate (Pred Forte 1% -) 1 drop OD QID [facility] Last Admin: 05/02/19 21:34 Dose: Not Given Timolol Maleate (Timoptic 0.5%) 1 drop OD BID [facility] Last Admin: 05/02/19 21:34 Dose: 1 drop ASSESSMENT/PLAN: 78 yo M PMH HTN, DM, HLD, CKD, presented from his PCP for a low BP reading. Pt is admitted for MAYELA on CKD. Hypotension - orthostatic negative. - Encourage PO intake - Echo shows EF 65%, mild mitral annular calcification, mild mitral valve thickening, trace MR, trace TR , mild aortic valve thickening, mild AR - losartan restarted at 25 mg -hold coreg MAYELA on CKD likely 2/2 dehydration - baseline Cr approx 2 , confirmed with PCP Dr. Linares - improving, today Cr is 2.2 - hold SOWMYA-I / ARB, avoid nephrotoxic agent -Renal U/S shows focal contour of L kidney. will need outpt f/u in 3 months - pending U lytes - Nephro recs appreciated DM - will decrease Levemir to 15 U 2/2 hypoglycemic episode . also changed levemirto 18 U and to am dosing - ISS, BGM - c/w gabapentin and eye drops HLD - c/w simvastatin DVT ppx: Hep SQ Visit type - Emergency Visit Emergency Visit: No - New Patient This patient is new to me today: No - Critical Care Critical Care patient: No - Discharge Referral Referred to [facility] Med P.C.: No ATTENDING PHYSICIAN STATEMENT I saw and evaluated the patient. I reviewed the resident's note and discussed the case with the resident. I agree with the resident's findings and plan as documented. SUBJECTIVE: OBJECTIVE: ASSESSMENT AND PLAN:
[2019-05-03] MEDS: GABAPENTIN 300 MG CAPSULE PO SCH ×2 (09:13→22:05)
[2019-05-03] MEDS: prednisoLONE ACETATE 1% OPHTH SUSP 5 ML BOTTLE OD SCH ×4 (09:18→22:11)
[2019-05-03] MEDS: TIMOLOL 0.5% OPHTHALMIC SOL 5 ML BOTTLE OD SCH ×2 (09:18→22:08)
--- NOTE | 2019-05-03 10:37 | CON.CARD ---
Consult Consult Specialty:: Cardiology Referred by:: Medicine Reason for Consultation:: bradycardia - History of Present Illness Chief Complaint: weakness, vomiting History of Present Illness: 78M h/o HTN, DM, HLD, CKD p/w hypotension. Has been feeling weak, tired since last and Wednesday, had vomiting, diarrhea since then. Ate less this weekend as well, but didn't feel good so went to PCP yesterday. No chest pain, palps, syncope, edema. Had dizziness after stepping out of the car that resolved after seconds. Noted to have bradycardia on tele. Today feeling near baseline, no prior cardiac hx - Past Medical History Cardio/Vascular: Yes: HTN, Hyperlipdemia Renal/: Yes: Renal Inusuff - Alcohol/Substance Use Hx Alcohol Use: No (quit 6 years ago) - Smoking History Smoking history: Never smoked Have you smoked in the past 12 months: No If you are a former smoker, when did you quit?: 40 yrs ago Home Medications - Allergies Allergies/Adverse Reactions: Allergies Allergy/AdvReac Type Severity Reaction Status Date / Time No Known Allergies Allergy Verified 05/01/19 19:15 - Home Medications Home Medications: Ambulatory Orders Carvedilol 12.5 mg PO BID 05/02/19 Gabapentin 300 mg PO BID 05/02/19 Insulin Detemir [Levemir Flextouch] 36 unit SQ HS 05/02/19 Losartan Potassium 100 mg PO DAILY 05/02/19 Prednisolone 1% Ophthalmic [Pred Forte 1% -] 1 drop OD Q2D 05/02/19 Simvastatin 20 mg PO HS 05/02/19 Sitagliptin Phosphate [Januvia -] 50 mg PO DAILY 05/02/19 Timolol 0.5% [Timoptic 0.5%] 1 drop OD DAILY 05/02/19 Torsemide [Demadex -] 10 mg PO DAILY 05/02/19 Family Medical History Family History: Unremarkable Review of Systems - Review of Systems Constitutional: reports: No Symptoms Eyes: reports: No Symptoms HENT: reports: No Symptoms Neck: reports: No Symptoms Cardiovascular: reports: No Symptoms Respiratory: reports: No Symptoms Gastrointestinal: reports: No Symptoms Genitourinary: reports: No Symptoms Musculoskeletal: reports: No Symptoms Integumentary: reports: No Symptoms Neurological: reports: No Symptoms Endocrine: reports: No Symptoms Hematology/Lymphatic: reports: No Symptoms Psychiatric: reports: No Symptoms Vital Signs: Vital Signs Temperature 98.2 F 05/03/19 09:21 Pulse Rate 61 05/03/19 09:21 Respiratory Rate 16 05/03/19 09:21 Blood Pressure 149/63 05/03/19 09:21 O2 Sat by Pulse Oximetry (%) 99 05/02/19 23:00 Constitutional: Yes: Well Nourished, No Distress, Calm Eyes: Yes: Conjunctiva Clear, EOM Intact HENT: Yes: Atraumatic, Normocephalic Neck: Yes: Supple, Trachea Midline Respiratory: Yes: Regular, CTA Bilaterally Gastrointestinal: Yes: Normal Bowel Sounds, Soft Cardiovascular: Yes: Regular Rate and Rhythm Heart Sounds: Yes: S1, S2 Extremities: No: Cold Edema: No Integumentary: No: Jaundice Neurological: Yes: Alert, Oriented Psychiatric: No: Agitated - Other Data Labs, Other Data: CBC, BMP 05/03/19 06:00 05/03/19 06:00 Assessment/Plan EKG: sinus, nl intervals, no ischemic changes tele: sinus, sinus mary with blocked PACs during overnight hours bradycardia - agree with holding bb for now, also has hypotension - monitor on tele - echo pending - sinus mary, PACs overnight may suggest sleep apnea - pt endorses snoring, recommend outpatient sleep study hypotension, dizziness - likely in setting of recent poor PO intake, vomiting - echo as above - holding home antihypertensives for now, monitor MAYELA - likely prerenal, improving with IVF HTN - holding home meds as above DM - manage per primary HLD - cont statin
[2019-05-03] MEDS: INSULIN SLIDING SCALE (NOVOLOG) 1 VIAL SQ SCH ×3 (11:56→22:12)
--- NOTE | 2019-05-03 12:17 | PN ---
Progress Note, Physician History of Present Illness: Pt seen and examined at bedside. He is awake and alert. he denies shortness of breath. He denies dizziness. - Current Medication List Current Medications: Active Medications Atorvastatin Calcium (Lipitor -) 10 mg PO HS [facility] Last Admin: 05/02/19 21:33 Dose: 10 mg Gabapentin (Neurontin -) 300 mg PO BID [facility] Last Admin: 05/03/19 09:13 Dose: 300 mg Insulin Aspart (Novolog Vial Sliding Scale -) 1 vial SQ ACHS [facility]; Protocol Last Admin: 05/03/19 11:56 Dose: 2 units Insulin Detemir (Levemir Vial) 18 units SQ AM [facility] Prednisolone Acetate (Pred Forte 1% -) 1 drop OD QID [facility] Last Admin: 05/03/19 09:18 Dose: Not Given Timolol Maleate (Timoptic 0.5%) 1 drop OD BID [facility] Last Admin: 05/03/19 09:18 Dose: 1 drop - Objective Vital Signs: Vital Signs Temperature 98.2 F 05/03/19 09:21 Pulse Rate 61 05/03/19 09:21 Respiratory Rate 16 05/03/19 09:21 Blood Pressure 149/63 05/03/19 09:21 O2 Sat by Pulse Oximetry (%) 99 05/02/19 23:00 Constitutional: Yes: Calm Eyes: Yes: Conjunctiva Clear HENT: Yes: Atraumatic Neck: Yes: Supple Cardiovascular: Yes: S1, S2 Respiratory: Yes: CTA Bilaterally Gastrointestinal: Yes: Normal Bowel Sounds, Soft Genitourinary: Yes: WNL Musculoskeletal: Yes: WNL Edema: No Neurological: Yes: Oriented Psychiatric: Yes: Oriented Labs: CBC, BMP 05/03/19 06:00 05/03/19 06:00 Problem List - Problems (1) Acute renal failure superimposed on chronic kidney disease Code(s): N17.9 - ACUTE KIDNEY FAILURE, UNSPECIFIED; N18.9 - CHRONIC KIDNEY DISEASE, UNSPECIFIED Qualifiers: Acute renal failure type: unspecified Chronic kidney disease stage: unspecified stage Qualified Code(s): N17.9 - Acute kidney failure, unspecified ; N18.9 - Chronic kidney disease, unspecified (2) Syncope, near Code(s): R55 - SYNCOPE AND COLLAPSE Assessment/Plan Current Medications Generic Name Dose Route Start Last Admin Trade Name Freq PRN Reason Stop Dose Admin Atorvastatin Calcium 10 mg 05/02/19 22:00 05/02/19 21:33 Lipitor - PO 10 mg HS PAM Administration Gabapentin 300 mg 05/02/19 22:00 05/03/19 09:13 Neurontin - PO 300 mg BID PAM Administration Insulin Aspart 1 vial 05/03/19 11:45 05/03/19 11:56 Novolog Vial Sliding Scale - SQ 2 units ACHS PAM Administration Protocol Insulin Detemir 18 units 05/04/19 07:00 Levemir Vial SQ AM PAM Prednisolone Acetate 1 drop 05/02/19 10:00 05/03/19 09:18 Pred Forte 1% - OD Not Given QID PAM Timolol Maleate 1 drop 05/02/19 10:00 05/03/19 09:18 Timoptic 0.5% OD 1 drop BID PAM Administration Impression 1. ckd 2. humphrey 3. near syncope 4. dm 5. htn Plan - bp is improving - renal function is improving - can re-introduce losartan at lower dose once bp is improved, 25 mg - cardio workup in progress - will need follow up ultrasound as outpt for the left kidney deformity
[2019-05-03] MEDS ORDERED: LOSARTAN POTASSIUM 25 MG TABLET PO SCH (14:00)
[2019-05-03] MEDS ORDERED: INSULIN (LEVEMIR) 100 UNITS/ML UNITS SQ SCH (22:00)
[2019-05-03] MEDS: ATORVASTATIN CA 10 MG TABLET (FP) PO SCH (22:06)
[2019-05-03] MEDS: POLYETHYLENE GLYCOL 3350 119 GM BTL PO SCH (22:11)
[2019-05-04] MEDS: INSULIN SLIDING SCALE (NOVOLOG) 1 VIAL SQ SCH ×3 (06:21→16:27)
[2019-05-04] MEDS ORDERED: INSULIN (LEVEMIR) 100 UNITS/ML UNITS SQ SCH (07:00)
[2019-05-04] MEDS ORDERED: LOSARTAN POTASSIUM 25 MG TABLET PO SCH (07:10)
[2019-05-04 07:57] LABS: CALCIUM 8.3 mg/dL (8.5-10.1); CREATININE 1.9 mg/dL (0.55-1.3); MAGNESIUM 2.3 mg/dL (1.8-2.4); PHOSPHOROUS 2.8 mg/dL (2.5-4.9); POTASSIUM 4.2 mmol/L (3.5-5.1)
[2019-05-04] MEDS: GABAPENTIN 300 MG CAPSULE PO SCH (09:31)
[2019-05-04] MEDS: TIMOLOL 0.5% OPHTHALMIC SOL 5 ML BOTTLE OD SCH (09:31)
[2019-05-04] MEDS: prednisoLONE ACETATE 1% OPHTH SUSP 5 ML BOTTLE OD SCH ×2 (09:31→13:28)
[2019-05-04] MEDS: POLYETHYLENE GLYCOL 3350 119 GM BTL PO SCH (09:36)
--- NOTE | 2019-05-04 10:39 | PN ---
Progress Note (short form) - Note Progress Note: s: no cp sob palps dizzy Current Medications Generic Name Dose Route Start Last Admin Trade Name Ernesto PRN Reason Stop Dose Admin Atorvastatin Calcium 10 mg 05/02/19 22:00 05/03/19 22:06 Lipitor - PO 10 mg HS PAM Administration Gabapentin 300 mg 05/02/19 22:00 05/04/19 09:31 Neurontin - PO 300 mg BID PAM Administration Insulin Aspart 1 vial 05/03/19 11:45 05/04/19 06:21 Novolog Vial Sliding Scale - SQ Not Given ACHS [facility] Protocol Insulin Detemir 18 units 05/04/19 07:00 05/04/19 06:26 Levemir Vial SQ 18 units AM PAM Administration Losartan Potassium 25 mg 05/04/19 07:10 05/04/19 09:31 Cozaar - PO 25 mg DAILY PAM Administration Polyethylene Glycol 17 gm 05/03/19 22:00 05/04/19 09:36 Miralax (For Daily Use) - PO 17 gm BID PAM Administration Prednisolone Acetate 1 drop 05/02/19 10:00 05/04/19 09:31 Pred Forte 1% - OD 1 drop QID PAM Administration Timolol Maleate 1 drop 05/02/19 10:00 05/04/19 09:31 Timoptic 0.5% OD 1 drop BID PAM Administration Vital Signs Period Temp Pulse Resp BP Sys/Junior Pulse Ox Last 24 Hr 97.6 F-98.3 F 58-67 16-20 118-161/64-72 98-99 Constitutional: Yes: Well Nourished, No Distress, Calm Eyes: Yes: Conjunctiva Clear Neck: Yes: Supple, Trachea Midline Respiratory: Yes: Regular, CTA Bilaterally Gastrointestinal: Yes: Normal Bowel Sounds, Soft Cardiovascular: Yes: Regular Rate and Rhythm Heart Sounds: Yes: S1, S2 Extremities: No: Cold Edema: No Integumentary: No: Jaundice Neurological: Yes: Alert, Oriented Psychiatric: No: Agitated CBC, BMP 05/03/19 06:00 05/04/19 05:45 Assessment/Plan EKG: sinus, nl intervals, no ischemic changes tele: sinus, sinus mary with blocked PACs during overnight hours bradycardia - agree with holding bb - tele benign - echo here unremarkable - sinus mary, PACs overnight may suggest sleep apnea - pt endorses snoring, recommend outpatient sleep study hypotension, dizziness - likely in setting of recent poor PO intake, vomiting - improved now MAYELA - likely prerenal, improving with IVF HTN - improved, back on home meds except holding bb as above DM - manage per primary HLD - cont statin cardiac [place] stable
[2019-05-04] MEDS ORDERED: LOSARTAN POTASSIUM 25 MG TABLET PO ONE (13:00)
--- NOTE | 2019-05-04 13:13 | PN ---
Progress Note, Physician History of Present Illness: Pt seen and examined at bedside. He is awake and alert. He denies shortness of breath. - Current Medication List Current Medications: Active Medications Atorvastatin Calcium (Lipitor -) 10 mg PO HS [facility] Last Admin: 05/03/19 22:06 Dose: 10 mg Gabapentin (Neurontin -) 300 mg PO BID [facility] Last Admin: 05/04/19 09:31 Dose: 300 mg Insulin Aspart (Novolog Vial Sliding Scale -) 1 vial SQ ACHS [facility]; Protocol Last Admin: 05/04/19 11:35 Dose: 2 units Insulin Detemir (Levemir Vial) 18 units SQ AM [facility] Last Admin: 05/04/19 06:26 Dose: 18 units Losartan Potassium (Cozaar -) 25 mg PO DAILY [facility] Last Admin: 05/04/19 09:31 Dose: 25 mg Losartan Potassium (Cozaar -) 25 mg PO ONCE ONE Stop: 05/04/19 13:01 Polyethylene Glycol (Miralax (For Daily Use) -) 17 gm PO BID [facility] Last Admin: 05/04/19 09:36 Dose: 17 gm Prednisolone Acetate (Pred Forte 1% -) 1 drop OD QID [facility] Last Admin: 05/04/19 09:31 Dose: 1 drop Timolol Maleate (Timoptic 0.5%) 1 drop OD BID [facility] Last Admin: 05/04/19 09:31 Dose: 1 drop - Objective Vital Signs: Vital Signs Temperature 98.0 F 05/04/19 09:45 Pulse Rate 61 05/04/19 09:45 Respiratory Rate 16 05/04/19 09:45 Blood Pressure 118/68 05/04/19 09:45 O2 Sat by Pulse Oximetry (%) 98 05/03/19 23:27 Constitutional: Yes: Calm Eyes: Yes: Conjunctiva Clear Cardiovascular: Yes: S1, S2 Respiratory: Yes: CTA Bilaterally Gastrointestinal: Yes: Soft Genitourinary: Yes: WNL Musculoskeletal: Yes: WNL Edema: No Integumentary: Yes: WNL Neurological: Yes: Oriented Psychiatric: Yes: Oriented Labs: CBC, BMP 05/03/19 06:00 05/04/19 05:45 Problem List - Problems (1) Acute renal failure superimposed on chronic kidney disease Code(s): N17.9 - ACUTE KIDNEY FAILURE, UNSPECIFIED; N18.9 - CHRONIC KIDNEY DISEASE, UNSPECIFIED Qualifiers: Acute renal failure type: unspecified Chronic kidney disease stage: unspecified stage Qualified Code(s): N17.9 - Acute kidney failure, unspecified ; N18.9 - Chronic kidney disease, unspecified (2) Syncope, near Code(s): R55 - SYNCOPE AND COLLAPSE Assessment/Plan Current Medications Generic Name Dose Route Start Last Admin Trade Name Ernesto PRN Reason Stop Dose Admin Atorvastatin Calcium 10 mg 05/02/19 22:00 05/03/19 22:06 Lipitor - PO 10 mg HS PAM Administration Gabapentin 300 mg 05/02/19 22:00 05/04/19 09:31 Neurontin - PO 300 mg BID PAM Administration Insulin Aspart 1 vial 05/03/19 11:45 05/04/19 11:35 Novolog Vial Sliding Scale - SQ 2 units ACHS PAM Administration Protocol Insulin Detemir 18 units 05/04/19 07:00 05/04/19 06:26 Levemir Vial SQ 18 units AM PAM Administration Losartan Potassium 25 mg 05/04/19 07:10 05/04/19 09:31 Cozaar - PO 25 mg DAILY PAM Administration Polyethylene Glycol 17 gm 05/03/19 22:00 05/04/19 09:36 Miralax (For Daily Use) - PO 17 gm BID PAM Administration Prednisolone Acetate 1 drop 05/02/19 10:00 05/04/19 09:31 Pred Forte 1% - OD 1 drop QID PAM Administration Timolol Maleate 1 drop 05/02/19 10:00 05/04/19 09:31 Timoptic 0.5% OD 1 drop BID PAM Administration Impression 1. ckd 2. humphrey 3. near syncope 4. dm 5. htn Plan - bp is stabilizing - can titrated dose of losartan to 50 mg as needed - beta [place] on hold for now - cardio workup in progress - will need follow up ultrasound as outpt for the left kidney deformity - discussed with medical team
[2019-05-04 16:05] VITALS: BP 143/70; PULSE 61; TEMP 98
--- NOTE | 2019-05-04 16:12 | DS ---
Physical Exam: SUBJECTIVE: Patient seen and examined at bedside. pt has no acute complaints. pt denies CP, dizziness, sob OBJECTIVE: Vital Signs Period Temp Pulse Resp BP Sys/Junior Pulse Ox Last 24 Hr 97.6 F-98.3 F 57-67 16-20 118-161/64-72 98-99 PHYSICAL EXAM GENERAL: The patient is awake, alert, and fully oriented, in no acute distress. LUNGS: Breath sounds equal, clear to auscultation bilaterally, no accessory muscle use. HEART: Regular rate and rhythm, S1, S2 without murmur, rub or gallop. ABDOMEN: Soft, nontender, nondistended, normoactive bowel sounds EXTREMITIES: 2+ pulses, warm, well-perfused, no edema. NEUROLOGICAL: Cranial nerves II through XII grossly intact. Normal speech SKIN: Warm, dry, normal turgor, no rashes or lesions noted. LABS Laboratory Results - last 24 hr 05/03/19 05/04/19 05/04/19 22:11 05:45 05:46 Sodium 140 Potassium 4.2 Chloride 110 H Carbon Dioxide 23 Anion Gap 7 L BUN 32.0 H Creatinine 1.9 H Est GFR (CKD-EPI)AfAm 37.75 Est GFR (CKD-EPI)NonAf 32.57 POC Glucometer 168 144 Random Glucose 145 H Calcium 8.3 L Phosphorus 2.8 Magnesium 2.3 05/04/19 11:31 Sodium Potassium Chloride Carbon Dioxide Anion Gap BUN Creatinine Est GFR (CKD-EPI)AfAm Est GFR (CKD-EPI)NonAf POC Glucometer 173 Random Glucose Calcium Phosphorus Magnesium HOSPITAL COURSE: Date of Admission:05/02/19 78 yo M PMH HTN, DM, HLD, CKD, presented from his PCP for a low BP reading. Pt is admitted for MAYELA on CKD. Pt was orthostatic negative. pt had an echo showing Echo shows EF 65%, mild mitral annular calcification, mild mitral valve thickening, trace MR, trace TR , mild aortic valve thickening, mild AR . The BP meds were all initially held. Pt was monitored on telemetry and had episodes of bradycardia on the tele monitor. Pt was advised not to continue Coreg. Pt's MAYELA improved after fluid hydration. Renal u/s showed focal contour of L kidney. will need outpt f/u in 3 months. Pt was followed by nephrology.Pts losartan was reinitiated at a lower dose of 50 mg . pt has a follow up appointment with his matte cutter, Dr. Anglin on Wednesday. Contact was made with Derrek Fagan and informed of hospital course and medication changes. Pt was also found to have hypoglycemic episodes and levemir was changed to AM dosing and 18 U . these medication changes were all explained to patient. Date of Discharge: 05/04/19 Minutes to complete discharge: 36 Discharge Summary Problems reviewed: Yes Reason For Visit: PRE-SYNCOPE, ACUTE RENAL FAILURE SUPERIMPOSED, Current Active Problems Acute renal failure superimposed on chronic kidney disease (Acute) Syncope, near (Acute) Bradycardia (Chronic) Condition: Stable - Instructions Diet, Activity, Other Instructions: You came into the hospital for low blood pressure. Your blood results show that you also had a decrease in your kidney function. You had a renal ultrasound showing a structural deformity and it is advised to have repeat ultrasound in 3 months to evaluate if this is a normal variant. You were treated with IV fluids and repeat bloodwork shows that your kidney function normalized. On evaluation of your heart, it was observed that you have episodes of a decreased heart rate so we discontinued your carvedilol. Your echocardiogram of your heart showed normal function. Please DO NOT take Coreg 12.5 anymore Please do not continue to take your Losartan 100 mg anymore. We are giving you a new prescription for a lower dose of Losartan 50 mg daily. Please do not continue to take torsemide until you communicate with your primary care physician and matte cutter You may continue to take your Januvia You should take 18 units of Levemir in the morning time. Please continue to measure your glucose at home and bring the log to your PCP and Booster Plant Operator Please continue to take your additional home medications as prescribed. Please follow up with your primary care physician, Dr. Dykes , in one week to monitor your chronic medical conditions. Please follow up with your matte cutter, Dr. Mcgraw. You have an appointment on May 07 at 2 pm[address] at [address] [place] [address]. Please follow up with Dr. Doshi (Truck Sales Representative) to be evaluated for Sleep Apnea. We believe that this may be contributing to your low heart rate. If you have any new, worsening, or concerning symptoms please return to the ED or call 911. Referrals: ON STAFF,NOT [Non Staff, Medical] - 05/08/19 Devante Doshi MD [Staff Physician] - 1 Week Paige Dykes MD [Primary Care Provider] - 1 Week Disposition: HOME - Home Medications Comprehensive Discharge Medication List: Ambulatory Orders Gabapentin 300 mg PO BID 05/02/19 Prednisolone 1% Ophthalmic [Pred Forte 1% -] 1 drop OD Q2D 05/02/19 Simvastatin 20 mg PO HS 05/02/19 Sitagliptin Phosphate [Januvia -] 50 mg PO DAILY 05/02/19 Timolol 0.5% [Timoptic 0.5%] 1 drop OD DAILY 05/02/19 Insulin (Levemir) [Levemir Vial] 18 units SQ AM #0 units 05/04/19 Losartan Potassium 50 mg PO DAILY #30 tablet 05/04/19 This patient is new to me today: No Emergency Visit: No Critical Care patient: No - Discharge Referral Referred to [facility] No ATTENDING PHYSICIAN STATEMENT I saw and evaluated the patient. I reviewed the resident's note and discussed the case with the resident. I agree with the resident's findings and plan as documented. SUBJECTIVE: OBJECTIVE: ASSESSMENT AND PLAN:
--- NOTE | 2019-05-04 17:40 | PN ---
Teaching Attending Note Name of Resident: Keira Carey ATTENDING PHYSICIAN STATEMENT I saw and evaluated the patient. I reviewed the resident's note and discussed the case with the resident. I agree with the resident's findings and plan as documented. SUBJECTIVE: Patient is feeling better with no acute distress. Vital Signs Temperature 98.0 F 05/04/19 16:04 Pulse Rate 61 05/04/19 16:04 Respiratory Rate 16 05/04/19 16:04 Blood Pressure 143/70 05/04/19 16:04 O2 Sat by Pulse Oximetry (%) 98 05/04/19 10:00 GENERAL: The patient is awake, alert, and fully oriented, in no acute distress. HEAD: Normal with no signs of trauma. EYES: PERRL, extraocular movements intact, sclera anicteric, conjunctiva clear. ENT: Ears normal, oropharynx clear without exudates, moist mucous membranes. NECK: Trachea midline, full range of motion, supple. LUNGS: Breath sounds equal, clear to auscultation bilaterally, no wheezes, no crackles, no accessory muscle use. HEART: Regular rate and rhythm, S1, S2 +, LEIGHA 2/6 , no rub or gallop. ABDOMEN: Soft, Nt, ND, normoactive bowel sounds, no guarding, no rebound, no hepatosplenomegaly, no masses. EXTREMITIES: 2+ pulses, warm, well-perfused, no edema. NEUROLOGICAL: Cranial nerves II through XII grossly intact. Normal speech, gait not observed. PSYCH: Normal mood, normal affect. SKIN: Warm, dry, normal turgor, no rashes or lesions noted CBCD WBC 6.4 K/mm3 (4.0-10.0) 05/03/19 06:00 RBC 4.61 M/mm3 (4.00-5.60) 05/03/19 06:00 Hgb 13.5 GM/dL (11.7-16.9) 05/03/19 06:00 Hct 40.0 % (35.4-49) 05/03/19 06:00 MCV 86.8 fl (80-96) 05/03/19 06:00 MCHC 33.6 g/dl (32.0-35.9) 05/03/19 06:00 RDW 13.3 % (11.9-15.9) 05/03/19 06:00 Plt Count 116 K/MM3 (134-434) L 05/03/19 06:00 MPV 8.9 fl (7.5-11.1) 05/03/19 06:00 CMP Sodium 140 mmol/L (136-145) 05/04/19 05:45 Potassium 4.2 mmol/L (3.5-5.1) 05/04/19 05:45 Chloride 110 mmol/L (98-107) H 05/04/19 05:45 Carbon Dioxide 23 mmol/L (21-32) 05/04/19 05:45 Anion Gap 7 MMOL/L (8-16) L 05/04/19 05:45 BUN 32.0 mg/dL (7-18) H 05/04/19 05:45 Creatinine 1.9 mg/dL (0.55-1.3) H 05/04/19 05:45 Random Glucose 145 mg/dL (74-106) H 05/04/19 05:45 Calcium 8.3 mg/dL (8.5-10.1) L 05/04/19 05:45 Total Bilirubin 0.6 mg/dL (0.2-1) 05/01/19 21:40 AST 19 U/L (15-37) 05/01/19 21:40 ALT 19 U/L (13-61) 05/01/19 21:40 Alkaline Phosphatase 60 U/L (45-117) 05/01/19 21:40 Total Protein 7.4 g/dl (6.4-8.2) 05/01/19 21:40 Albumin 3.6 g/dl (3.4-5.0) 05/01/19 21:40 CARDIAC ENZYMES Creatine Kinase 132 U/L (26-308) 05/01/19 21:40 Troponin I < 0.02 ng/ml (0.00-0.05) 05/01/19 21:40 Current Medications Generic Name Dose Route Start Last Admin Trade Name Danteq PRN Reason Stop Dose Admin Atorvastatin Calcium 10 mg 05/02/19 22:00 05/03/19 22:06 Lipitor - PO 10 mg HS PAM Administration Gabapentin 300 mg 05/02/19 22:00 05/04/19 09:31 Neurontin - PO 300 mg BID PAM Administration Insulin Aspart 1 vial 05/03/19 11:45 05/04/19 16:27 Novolog Vial Sliding Scale - SQ Not Given ACHS [facility] Protocol Insulin Detemir 18 units 05/04/19 07:00 05/04/19 06:26 Levemir Vial SQ 18 units AM PAM Administration Losartan Potassium 25 mg 05/04/19 07:10 05/04/19 09:31 Cozaar - PO 25 mg DAILY PAM Administration Polyethylene Glycol 17 gm 05/03/19 22:00 05/04/19 09:36 Miralax (For Daily Use) - PO 17 gm BID PAM Administration Prednisolone Acetate 1 drop 05/02/19 10:00 05/04/19 13:28 Pred Forte 1% - OD Not Given QID PAM Timolol Maleate 1 drop 05/02/19 10:00 05/04/19 09:31 Timoptic 0.5% OD 1 drop BID PMA Administration Home Medications Medication Instructions Recorded Carvedilol 12.5 mg PO BID 05/02/19 Gabapentin 300 mg PO BID 05/02/19 Insulin Detemir [Levemir Flextouch] 36 unit SQ HS 05/02/19 Losartan Potassium 100 mg PO DAILY 05/02/19 Prednisolone 1% Ophthalmic [Pred 1 drop OD QID 05/02/19 Forte 1% -] Simvastatin 20 mg PO HS 05/02/19 Sitagliptin Phosphate [Januvia -] 50 mg PO DAILY 05/02/19 Timolol 0.5% [Timoptic 0.5%] 1 drop OD DAILY 05/02/19 Torsemide [Demadex -] 10 mg PO DAILY 05/02/19 tele: sinus, sinus mary with blocked PACs during overnight hours ASSESSMENT AND PLAN: Patient is a 78yom with PMhx CKD with baseline of 2.2, HTN, DM, who presented with hypotension from his PCP's office. He was found to have MAYELA on CKD. As per patient , he experienced diaphoresis and when he checked his blood sugar was in 50's, and was found to be hypotensive as well. # Acute sinus bradycardia: improved post holding Coreg , will discontinue Coreg. Follow up with retarder operator. # MAYELA on CKD: base line Cr in 2 range. patient is back to his baseline. patient is back on losartan to 50mg from 25mg po daily. As per nephro to continue with Losartan 50mg po daily. # Hypotension: presented with Bradycardia, likely due to volume depletion, losartan was held. # T2DM: will cut the dose of levemir into 1/2, will sliding scale and will give it in am. # As per cardio: sinus mary,with PACs suggestive of sleep apnea - pt endorses snoring, recommend outpatient sleep study, echo pending # HTN is normotensive , continue Losartan from 25mg to 50mg po daily , increased from 25mg , discharge the patient home with 50mg po daily. #HLD: continue statin dc patient home.
== END 2019-05-04 18:49 | disposition home or self-care (01) ==
LOC: JER 18:58 → INTOOBSV 05-02 00:19 → UNDOADMOB 05-02 00:19 → JERBED 05-02 00:19 → J4S 05-02 14:47
PROVIDERS: ADMIT Internal Medicine; ATTEND Internal Medicine
PROC: 3E0337Z Introduction of Electrolytic and Water Balance Substance into Peripheral Vein, Percutaneous Approach (ICD-10-PCS; principal; 2019-05-02)
PROC: 3E033VG Introduction of Insulin into Peripheral Vein, Percutaneous Approach (ICD-10-PCS; 2019-05-02)
DX: R55 Syncope and collapse (principal); N17.9 Acute kidney failure, unspecified; E11.22 Type 2 diabetes mellitus with diabetic chronic kidney disease; I12.9 Hypertensive chronic kidney disease with stage 1 through stage 4 chronic kidney disease, or unspecified chronic kidney disease; N18.3 Chronic kidney disease, stage 3 (moderate); Z79.4 Long term (current) use of insulin; I95.9 Hypotension, unspecified; R00.1 Bradycardia, unspecified; E78.5 Hyperlipidemia, unspecified
CPT/HCPCS: 36415; 71045-TC-FY; 76775-TC; 80048; 80053; 81003; 82436; 82550; 82962; 83735; 84100; 84133; 84300; 84484; 85025; 85027; 93005; 93010; 93306-TC; 96360; 96361; 96372; 99285-25; G0378; J7030

== ENCOUNTER 2020-02-15 16:40 | Emergency (ER) | payer OTHER ==
[2020-02-15 16:53] VITALS: TEMP 97.6; BMI 24.7
[2020-02-15 18:30] LABS: BASO % 1.2 % (0-2.0); EOS % 2.2 % (0-4.5); HEMATOCRIT 45.4 % (35.4-49); MEAN CELL VOLUME 88.1 fl (80-96); MEAN PLT VOLUME 9.3 fl (7.5-11.1); MONO % 10.8 % (3.8-10.2); NEUT % 53.8 % (42.8-82.8); PLATELET COUNT 148 K/MM3 (134-434); RBC 5.15 M/mm3 (4.00-5.60); RDW 13.7 % (11.9-15.9); WHITE BLOOD COUNT 6.9 K/mm3 (4.0-10.0)
[2020-02-15 18:55] LABS: POTASSIUM 4.7 mmol/L (3.5-5.1)
[2020-02-15 18:57] LABS: ALBUMIN 3.6 g/dl (3.4-5.0); CALCIUM 9.2 mg/dL (8.5-10.1)
[2020-02-15 18:58] LABS: BLOOD UREA NITROGEN 24.1 mg/dL (7-18)
[2020-02-15 19:01] LABS: CREATININE 1.7 mg/dL (0.55-1.3)
[2020-02-15 19:02] LABS: BILIRUBIN,TOTAL 0.7 mg/dL (0.2-1); TOT PROT 7.5 g/dl (6.4-8.2)
[2020-02-15 19:13] LABS: EPI CELLS 3 /uL (0-25.1); HYALINE CASTS 0 /uL (0-3.1); URINE APPEARANCE CLEAR; URINE BACTERIA 27 /uL (0-1359); URINE BILIRUBIN NEGATIVE (NEGATIVE); URINE COLOR YELLOW; URINE GLUCOSE (UA) NEGATIVE (NEGATIVE); URINE KETONE NEGATIVE (NEGATIVE); URINE LEUK ESTERASE NEGATIVE (NEGATIVE); URINE NITRITE NEGATIVE (NEGATIVE); URINE PROTEIN 1+ (NEGATIVE); URINE RBC 4 /uL (0-23.9); URINE UROBILINOGEN 0.2 mg/dL (0.2-1.0); URINE WBC 3 /uL (0-25.8)
[2020-02-15 20:09] VITALS: BP 164/82; PULSE 88
== END 2020-02-15 23:03 | disposition home or self-care (01) ==
LOC: JER 16:40
DX: H53.2 Diplopia (principal)
CPT/HCPCS: 36415; 70450-TC; 70551-TC; 80053; 81003; 85025; 93005; 93010; 99285-25; C9803; U0003

== ENCOUNTER 2023-04-20 21:41 | Inpatient (IN) | payer OTHER ==
[2023-04-20 21:49] VITALS: BMI 26.0
[2023-04-20 23:25] LABS: BASO % 0.3 % (0-2.0); EOS % 0.2 % (0-4.5); HEMATOCRIT 47.7 % (35.4-49); HEMOGLOBIN 15.9 GM/dL (11.7-16.9); LYMPH % 6.2 % (8-40); MCH 29.5 pg (25.7-33.7); MCHC 33.4 g/dl (32.0-35.9); MEAN CELL VOLUME 88.5 fl (80-96); MEAN PLT VOLUME 8.6 fl (7.5-11.1); MONO % 12.8 % (3.8-10.2); NEUT % 80.5 % (42.8-82.8); PLATELET COUNT 104 10^3/uL (134-434); RBC 5.39 M/mm3 (4.00-5.60); RDW 13.8 % (11.9-15.9); WHITE BLOOD COUNT 6.2 K/mm3 (4.0-10.0)
[2023-04-20 23:39] LABS: INR 1.12 (0.83-1.09)
[2023-04-20 23:42] LABS: ACTIVATED PTT 31.7 SECONDS (25.2-36.5)
[2023-04-20 23:53] LABS: POTASSIUM 4.6 mmol/L (3.5-5.1)
[2023-04-20 23:56] LABS: BLOOD UREA NITROGEN 62.4 mg/dL (7-18); CALCIUM 9.1 mg/dL (8.5-10.1)
[2023-04-20 23:57] LABS: MAGNESIUM 2.3 mg/dL (1.8-2.4)
[2023-04-20 23:59] LABS: BILIRUBIN,DIRECT 1.9 mg/dL (0.0-0.2); CREATININE 2.8 mg/dL (0.55-1.3)
[2023-04-21 00:01] LABS: PHOSPHOROUS 3.3 mg/dL (2.5-4.9)
[2023-04-21] MEDS: SODIUM CHLORIDE 0.9% 500 ML INFUS.BAG IV ONE (00:45)
[2023-04-21] MEDS: LACTATED RINGERS SOLUTION 1,000 ML/1,000 ML INFUS.BAG IV SCH (06:08)
[2023-04-21] MEDS: HEPARIN NA (PORCINE) 5,000 UNITS/ML 1ML VIAL SQ SCH (06:08)
[2023-04-21] MEDS ORDERED: HEPARIN NA (PORCINE) 5,000 UNITS/ML 1ML VIAL ONE ×2 (06:14→13:34)
[2023-04-21] MEDS: INSULIN ASPART SLIDING SCALE (NOVOLOG) 1 VIAL SQ SCH (07:30)
[2023-04-21 08:03] LABS: HEMATOCRIT 43.1 % (35.4-49); HEMOGLOBIN 14.6 GM/dL (11.7-16.9); MCH 29.8 pg (25.7-33.7); MCHC 33.8 g/dl (32.0-35.9); MEAN CELL VOLUME 88.1 fl (80-96); MEAN PLT VOLUME 9.3 fl (7.5-11.1); PLATELET COUNT 100 10^3/uL (134-434); RBC 4.89 M/mm3 (4.00-5.60); RDW 14.3 % (11.9-15.9); WHITE BLOOD COUNT 5.7 K/mm3 (4.0-10.0)
[2023-04-21 08:18] LABS: CALCIUM 8.8 mg/dL (8.5-10.1)
[2023-04-21 08:19] LABS: ALBUMIN 2.8 g/dl (3.4-5.0); BLOOD UREA NITROGEN 60.8 mg/dL (7-18); MAGNESIUM 2.2 mg/dL (1.8-2.4)
[2023-04-21 08:22] LABS: CREATININE 2.5 mg/dL (0.55-1.3)
[2023-04-21 08:23] LABS: BILIRUBIN,TOTAL 3.1 mg/dL (0.2-1)
[2023-04-21 08:24] LABS: TOT PROT 6.3 g/dl (6.4-8.2)
[2023-04-21] MEDS ORDERED: GABAPENTIN 300 MG CAPSULE ONE (08:30)
[2023-04-21] MEDS ORDERED: ASPIRIN 81 MG CHEWABLE TABLETS ONE (08:30)
[2023-04-21] MEDS: PYRIDOXINE HCL (B-6) 50 MG TABLET (FP) PO SCH (09:27)
[2023-04-21] MEDS: GABAPENTIN 300 MG CAPSULE PO SCH (09:27)
[2023-04-21] MEDS: ASPIRIN 81 MG CHEWABLE TABLETS PO SCH (09:27)
[2023-04-21] MEDS ORDERED: amLODIPine BESYLATE 2.5 MG TABLET (FP) PO SCH (10:00)
[2023-04-21] MEDS ORDERED: LOSARTAN POTASSIUM 50 MG TABLET PO SCH (10:00)
[2023-04-21] MEDS ORDERED: ENOXAPARIN NA (PORCINE) 40 MG/0.4 ML DISP.SYRIN SQ SCH (10:00)
[2023-04-21] MEDS ORDERED: PYRIDOXINE HCL (B-6) 50 MG TABLET (FP) PO SCH (10:00)
[2023-04-21 13:56] LABS: URINE APPEARANCE CLEAR; URINE BILIRUBIN NEGATIVE (NEGATIVE); URINE COLOR DK YELLOW; URINE GLUCOSE (UA) 3+ (NEGATIVE); URINE KETONE TRACE (NEGATIVE); URINE LEUK ESTERASE NEGATIVE (NEGATIVE); URINE NITRITE NEGATIVE (NEGATIVE); URINE PROTEIN TRACE (NEGATIVE)
[2023-04-21] MEDS ORDERED: PATIENT'S OWN MEDICATION (NON-FORMULARY) (Dorzolamide/Timolol/Pf [Dorzolamide-Timolol 2%-0 OU SCH (19:10)
[2023-04-21] MEDS: PATIENT'S OWN MEDICATION (NON-FORMULARY) (Dorzolamide/Timolol/Pf [Dorzolamide-Timolol 2%-0 OP SCH (22:45)
[2023-04-22] MEDS ORDERED: HEPARIN NA (PORCINE) 5,000 UNITS/ML 1ML VIAL ONE (06:02)
[2023-04-22 07:37] LABS: HEMATOCRIT 47.1 % (35.4-49); HEMOGLOBIN 15.7 GM/dL (11.7-16.9); MCH 29.5 pg (25.7-33.7); MCHC 33.2 g/dl (32.0-35.9); MEAN CELL VOLUME 88.6 fl (80-96); PLATELET COUNT 104 10^3/uL (134-434); RBC 5.32 M/mm3 (4.00-5.60)
[2023-04-22 07:53] LABS: POTASSIUM 4.2 mmol/L (3.5-5.1)
[2023-04-22 08:01] LABS: ALBUMIN 2.8 g/dl (3.4-5.0); BLOOD UREA NITROGEN 54.7 mg/dL (7-18)
[2023-04-22 08:04] LABS: CREATININE 1.9 mg/dL (0.55-1.3)
[2023-04-22 08:05] LABS: BILIRUBIN,TOTAL 1.5 mg/dL (0.2-1)
[2023-04-22 08:06] LABS: TOT PROT 6.4 g/dl (6.4-8.2)
[2023-04-22] MEDS ORDERED: PANTOPRAZOLE 20 MG TABLET PO SCH (10:00)
[2023-04-22] MEDS ORDERED: CHLORTHALIDONE 25 MG TABLET PO SCH (10:00)
[2023-04-22 10:06] VITALS: BP 158/68; PULSE 66; RESP 20; TEMP 98.3
== END 2023-04-22 16:18 | disposition home or self-care (01) | DRG 442 ==
LOC: JER 21:41 → JERBED 04-21 00:22 → OBSVTOIN 04-21 05:02 → J5S 04-22 10:32
PROVIDERS: ADMIT Internal Medicine; ATTEND Internal Medicine
DX: K71.9 Toxic liver disease, unspecified (principal); N17.9 Acute kidney failure, unspecified; G25.1 Drug-induced tremor; T37.1X5A Adverse effect of antimycobacterial drugs, initial encounter; I12.9 Hypertensive chronic kidney disease with stage 1 through stage 4 chronic kidney disease, or unspecified chronic kidney disease; E11.22 Type 2 diabetes mellitus with diabetic chronic kidney disease; N18.30 Chronic kidney disease, stage 3 unspecified; E78.5 Hyperlipidemia, unspecified; R47.81 Slurred speech; D69.6 Thrombocytopenia, unspecified; E11.65 Type 2 diabetes mellitus with hyperglycemia; H40.89 Other specified glaucoma; E11.42 Type 2 diabetes mellitus with diabetic polyneuropathy; K21.9 Gastro-esophageal reflux disease without esophagitis; Z86.73 Personal history of transient ischemic attack (TIA), and cerebral infarction without residual deficits
CPT/HCPCS: 0241U-QW; 36415; 70450-TC; 71045-TC-FY; 71250-TC; 76700-TC; 80053; 81003; 82140; 82248; 82550; 82570; 82962; 82977; 83036; 83735; 84100; 84156; 84207; 84484; 85025; 85027; 85610; 85730; 86704; 86708; 86803; 87340; 87517; 93005; 93010; 99285-25; G0378; J1644